=== PATIENT | female | born 1965 | race Caucasian/White ===

== ENCOUNTER 2017-05-01 09:09 | Day surgery (SDC) | payer BC ==
[~2017-05-01 09:09] MED LIST: CEFAZOLIN 1 GM INJ; CEFAZOLIN 2 GM/50 ML (PMX) 50 ML IVPB; SOD CHLORIDE 0.9% 1,000 ML IV
[2017-05-01 10:18] LABS: ADD MAN DIFF? NO
[2017-05-01 10:22] LABS: BASOPHIL # 0.1 10^3/ul (0.0-0.1); BASOPHILS % 0.7 % (0.0-2.0); EOSINOPHILS # 0.2 10^3/ul (0.0-0.5); EOSINOPHILS % 1.8 % (0.0-7.0); HEMATOCRIT 40.8 % (37.0-47.0); HEMOGLOBIN 13.4 g/dl (12.0-16.0); LYMPHOCYTES # 3.9 10^3/ul (0.8-2.9); LYMPHOCYTES % 41.6 % (15.0-51.0); MEAN CORPUSCULAR HGB CONC 32.8 g/dl (32.0-37.0); MEAN CORPUSCULAR VOLUME 88.3 fl (82.0-101.0); MEAN PLATELET VOLUME 10.4 fl (7.4-10.4); MONOCYTE # 0.6 10^3/ul (0.3-0.9); NEUTROPHIL # 4.6 10^3/ul (1.6-7.5); NEUTROPHILS % 49.2 % (39.0-77.0); PLATELET COUNT 352 10^3/UL (140-415); RED BLOOD COUNT 4.62 10^6/ul (4.20-5.40); RED CELL DISTRIBUTION WIDTH 12.9 % (11.5-14.5)
[2017-05-01 10:22] LABS: WHITE BLOOD COUNT 9.4 10^3/ul (4.8-10.8)
[2017-05-01 10:51] LABS: ALANINE AMINOTRANSFERASE 132 IU/L (13-69); ALBUMIN/GLOBULIN RATIO 1.51; ALKALINE PHOSPHATASE 99 IU/L (42-121); ASPARTATE AMINO TRANSFERASE 62 IU/L (15-46); BILIRUBIN,INDIRECT 0.2 mg/dl (0-1.1); BILIRUBIN,TOTAL 0.2 mg/dl (0.2-1.3); CARBON DIOXIDE 27 mmol/L (21-31); CHLORIDE 107 mmol/L (97-110); GLUCOSE 109 mg/dl (70-220); TOTAL PROTEIN 8.3 g/dl (6.1-8.1)
[2017-05-01 10:52] LABS: INR 0.91; PARTIAL THROMBOPLASTIN TIME 32.5 Sec (25.0-35.0); PROTIME 12.3 Sec (11.9-14.9)
[2017-05-01 11:01] LABS: BLOOD UREA NITROGEN 13 mg/dl (7-20); CALCIUM 9.7 mg/dl (8.4-10.2); CREATININE 0.62 mg/dl (0.44-1.00); POTASSIUM 4.2 mmol/L (3.5-5.1)
[2017-05-01 11:07] LABS: ANION GAP 12 (8-16)
[2017-05-01 11:08] LABS: SODIUM 142 mmol/L (135-144)
[2017-05-01] MEDS ORDERED: ROCURONIUM 50 MG INJ (11:24)
[2017-05-01] MEDS ORDERED: FENTAnyl 50 MCG/ML VIAL (11:24)
[2017-05-01] MEDS ORDERED: MIDAZOLAM 1 MG/ML 2 ML INJ (11:24)
[2017-05-01] MEDS ORDERED: PROPOFOL 20 ML (11:24)
[2017-05-01] MEDS ORDERED: hydrALAzine 20 MG INJ IV (11:30)
[2017-05-01] MEDS ORDERED: EPHEDrine SULFATE 50 MG/5 ML SYG IV (11:30)
[2017-05-01] MEDS ORDERED: DIPHENHYDRAMINE 50 MG INJ IV (11:30)
[2017-05-01] MEDS ORDERED: LABETALOL HCL 20MG INJ IV (11:30)
[2017-05-01] MEDS ORDERED: morphine (1 MG/ML) 10ML SYRINGE IV ×2 (11:30)
[2017-05-01] MEDS ORDERED: OXYCODONE/ACETAMINOPHEN (5/325) TAB PO (11:30)
[2017-05-01] MEDS ORDERED: FENTAnyl 50 MCG/ML VIAL IV ×2 (11:30)
[2017-05-01] MEDS: LIDOCAINE 1%/EPI 30 ML INJ (12:03)
[2017-05-01] MEDS ORDERED: KETOROLAC 30 MG INJ (12:11)
[2017-05-01] MEDS ORDERED: SUGAMMADEX SODIUM 200 MG/2 ML VIAL IV (12:11)
[2017-05-01] MEDS ORDERED: ONDANSETRON 4 MG INJ (12:11)
[2017-05-01] MEDS ORDERED: METOCLOPRAMIDE 10 MG INJ (12:11)
[2017-05-01] MEDS ORDERED: DEXAMETHASONE 4 MG/ML 1 ML INJ (12:11)
[2017-05-01] MEDS ORDERED: NEOMYC/POLYMYX/BACIT 30 GM OINT (12:19)
[2017-05-01] MEDS: ONDANSETRON 4 MG INJ IV (12:49)
[2017-05-01] MEDS: MEPERIDINE 25 MG INJ IV (12:50)
== END 2017-05-01 14:35 | disposition home or self-care (01) ==
LOC: SDS 09:09
DX: L72.11 Pilar cyst (principal)
CPT/HCPCS: 11423; 80053; 85025; 85610; 85730; 88307